=== PATIENT | female | born 1975 | race Caucasian/White ===

== ENCOUNTER 2018-05-11 05:38 | Day surgery (SDC) | payer OTHER ==
[~2018-05-11 05:38] MED LIST: SYNTHROID100 MCG PO
[2018-05-11] MEDS ORDERED: PERCOCET 5-3251 EACH PO (07:14)
[2018-05-11] MEDS ORDERED: CIPRO500 MG PO (07:15)
[2018-05-11] MEDS ORDERED: SURFAK240 M1 PO (07:15)
[2018-05-11] MEDS ORDERED: POLY119PG PO (07:15)
[2018-05-11] MEDS ORDERED: PHENERGAN25 MG PO (07:16)
[2018-05-11] MEDS ORDERED: PROTONIX40 MG PO (07:16)
== END 2018-05-11 12:35 | disposition home or self-care (01) ==
LOC: CIR.AMB
DX: K80.10 Calculus of gallbladder with chronic cholecystitis without obstruction (principal); K42.9 Umbilical hernia without obstruction or gangrene; K43.2 Incisional hernia without obstruction or gangrene